=== PATIENT | female | born 1970 | race Two or more races ===

== ENCOUNTER 2023-06-12 19:01 | Emergency (ER) | payer OTHER ==
[~2023-06-12] VITALS: Ht 170.2 cm; Wt 77.0 kg
[2023-06-12 19:06] VITALS: BP 142/63; PULSE 76; RESP 18; O2SAT 97
== END 2023-06-13 02:06 | disposition left against medical advice (07) ==
LOC: ER 19:01
DX: S16.1XXA Strain of muscle, fascia and tendon at neck level, initial encounter (principal); S30.1XXA Contusion of abdominal wall, initial encounter; S20.212A Contusion of left front wall of thorax, initial encounter; R51.9 Headache, unspecified; J45.909 Unspecified asthma, uncomplicated; Z98.890 Other specified postprocedural states; V53.5XXA Driver of pick-up truck or van injured in collision with car, pick-up truck or van in traffic accident, initial encounter; Y93.I9 Activity, other involving external motion; Y92.89 Other specified places as the place of occurrence of the external cause; Y99.8 Other external cause status
CPT/HCPCS: 70450; 71046; 72100; 72125; 74176